=== PATIENT | male | born 1955 | race Caucasian/White ===

== ENCOUNTER 2024-12-20 09:25 | Day surgery (SDC) | payer MEDICARE, SELFPAY ==
[2024-12-20] VITALS (9 sets, daily range): BP systolic 99–139; BP diastolic 62–84; PULSE 62–83; RESP 12–19; TEMP 36.7–37.2; O2SAT 95–100; BMI 25.5
[2024-12-20] MEDS: SODIUM CHLORIDE 0.9% 500 ML 500 ML 20 ML IV (10:10)
[2024-12-20] MEDS: fentaNYL CIT INJ 50 mCg/ML AMP 2ML (ASD USE ONLY) IVP (10:13)
[2024-12-20] MEDS: DiphenhydrAMINE INJ 50 MG/ML VIAL 25 MG IVP (10:13)
[2024-12-20] MEDS: MIDAZOLAM INJ 1 MG/ML VIAL 2 ML (ASD USE ONLY) 2 MG IVP (10:13)
== END 2024-12-20 11:20 | disposition home or self-care (01) ==
PROVIDERS: PCP Internal Medicine; Referring Provider Specialist; Visit Provider Specialist
PROC: 0DBE8ZX Excision of Large Intestine, Via Natural or Artificial Opening Endoscopic, Diagnostic (ICD-10-PCS; CPT 45380; principal; 2024-12-20 11:30)
DX: K64.9 Unspecified hemorrhoids (principal); K57.30 Diverticulosis of large intestine without perforation or abscess without bleeding
CPT/HCPCS: 45378; J1200; J2250; J3010; J7040

== ENCOUNTER → 2025-03-09 | Outpatient (CLI) | payer MEDICARE, SELFPAY ==
--- NOTE | 2025-03-09 07:30 | XR_ITS ---
Examination: Abdomen sonogram, Limited Date and time of exam: March 09, 2025, 0720 hours INDICATIONS: Constipation episode lasting one week beginning 2 months ago Technique: Real-time cordon scale transabdominal sonographic images of the upper abdomen obtained. Findings: Normal gallbladder. Normal common bile duct 0.4 cm Pancreatic head 2.9 cm Liver 13.0 cm left lobe 29 x 41 mm liver cyst Normal hepatopedal portal venous flow Patent IVC IMPRESSION: Normal gallbladder Benign left lobe liver cyst
== END | disposition home or self-care (01) ==
LOC: CDIM 06:59
PROVIDERS: PCP Internal Medicine; Referring Provider Specialist; Visit Provider Specialist
DX: K76.89 Other specified diseases of liver (principal)
CPT/HCPCS: 76705